=== PATIENT | male | born 1985 | race African-American/Black ===

== ENCOUNTER 2020-01-25 17:49 | Emergency (ER) | payer OTHER ==
[2020-01-25 17:58] VITALS: BP 120/65; PULSE 83; TEMP 98.3; BMI 21.2
--- NOTE | 2020-01-25 20:07 | PDOC ---
Documentation entered by Neida Ignacio SCRIBE, acting as scribe for Mane Degroot MD. Mane Degroot MD: This documentation has been prepared by the scribe, Neida Ignacio SCRIBE, under my direction and personally reviewed by me in its entirety. I confirm that the documentation accurately reflects all work, treatment, procedures, and medical decision making performed by me. History of Present Illness - General Chief Complaint: Chest Pain Stated Complaint: CHEST PAIN Time Seen by Provider: 01/25/20 19:30 History Source: Patient Exam Limitations: No Limitations - History of Present Illness Initial Comments: 01/25/20 19:32 Patient is a 34 year old male with no significant past medical history of chest pain. Pt notes he has had intermittent episodes of mid sternal, chest tighntess that seems worse when he is at work in the cold. The pain tends to last for hours and be related to being in a cold environement. He denies any exertional worsening of sypmtoms, fever/chills, cough, sob, guevara, n/v, diaphoresis, back pain, abd pain, leg swelling,hemoptysis. Pt notes that certain positions seems to worsen it such as when he bends over or when he is holding things with his arm. Social hx: denies etoh abuse, recreational drug use, smoking Family hx:denies any family history Past History - Medical History Allergies/Adverse Reactions: Allergies Allergy/AdvReac Type Severity Reaction Status Date / Time No Known Allergies Allergy Verified 01/25/20 17:53 - Psycho-Social/Smoking History Smoking History: Never smoked - Substance Abuse Hx (Audit-C & DAST Scrn) How often the patient has a drink containing alcohol: Never Score: In Men: 4 or > Positive; In Women: 3 or > Positive: 0 Screen Result (Pos requires Nsg. Audit-10AR): Negative Review of Systems - Review of Systems Able to Perform ROS?: Yes Comments:: 01/25/20 19:32 Constitutional - Pt denies Fever, Chills, weakness, HEENT: denies vision changes, sore throat Respiratory: Denies cough, sob, hemoptysis Cardiac: +chest pain, denies palpitations, light headedness, leg swelling Abd/GI: denies abd pain, nausea, vomiting, blood per rectum, melena, diarrhea : denies dysuria, frequency, discharge Musculskelatal - denies back pain, joint swelling skin - denies bruising, erythema, rash neurological: denies headache, numbness, focal weakness, tingling, ataxia, weakness hematologic: denies anemia, easy bruising, easy bleeding *Physical Exam - Vital Signs Last Vital Signs Temp Pulse Resp BP Pulse Ox 98.3 F 83 18 120/65 99 01/25/20 17:53 01/25/20 17:53 01/25/20 17:53 01/25/20 17:53 01/25/20 17:53 - Physical Exam 01/25/20 19:32 GENERAL: The patient is awake, alert, and fully oriented, Nontoxic - in no acute distress. HEAD: Normocephalic, atraumatic. EYES: extraocular movements intact, sclera anicteric, conjunctiva clear. ENT: Normal voice, Moist mucous membranes. NECK: Normal range of motion, supple without lymphadenopathy, JVD, or masses. LUNGS: Breath sounds equal, clear to auscultation bilaterally. No wheezes, no crackles, no rales. HEART: Regular rate and rhythm, normal S1 and S2 without murmur, rub or gallop. ABDOMEN: Soft, nontender, normoactive bowel sounds. No guarding, no rebound. No masses. EXTREMITIES: Normal range of motion, no edema. No clubbing or cyanosis. No cords, erythema, or tenderness. NEUROLOGICAL: No facial asymmetry, Normal speech, normal gait. PSYCH: Normal mood, normal affect. SKIN: Warm, Dry, normal turgor, no rashes or lesions noted. Heart Score/ECG Review - ECG Impressions Comment:: 01/25/20 20:01 Twelve-lead EKG was performed and reviewed by me. There is normal sinus rhythm with a normal rate. Rate of 79 The axis is normal. The intervals are normal. There is normal R wave progression There are no ST or T wave abnormalities. Impression: Normal twelve-lead EKG Medical Decision Making - Medical Decision Making 01/25/20 20:01 34-year-old gentleman no past medical history presenting with intermittent episodes of atraumatic chest tightness that is nonexertional without associated shortness of breath, diaphoresis, nausea, vomiting. On exam the patient is well-appearing, no distress, with an unremarkable physical exam. The pain does seem to be exacerbated with certain arm movements, however there is no focal tenderness to palpation. Based on the positional nature with certain movements I do suspect it is muscular. Will recommend supportive care will obtain cxr will refer to PMD and cardiology 01/25/20 20:59 chest appears negative on my read will ck COVID will dc with outpatient fu I discussed the physical exam findings, ancillary test results and final diagnoses with the patient. I answered all of the patient's questions. The patient was satisfied with the care received and felt comfortable with the discharge plan and treatment plan. The patient will call their primary care physician within 24 hours to arrange follow-up and will return to the Emergency Department with any new, persistent or worsening symptoms. Discharge - Discharge Information Problems reviewed: Yes Clinical Impression/Diagnosis: Chest pain Qualifiers: Chest pain type: unspecified Qualified Code(s): R07.9 - Chest pain, unspecified Condition: Stable Disposition: HOME - Admission No - Follow up/Referral Referrals: [facility] [place] [Provider Group] Justo Marcos MD [Staff Physician] - - Patient Discharge Instructions Patient Printed Discharge Instructions: DI for Atypical Chest Pain Additional Instructions: Return to the emergency department immediately with ANY new, persistent or worsening symptoms. You were swabbed for COVID19. We will notify you of the results. You MUST call and follow up with your doctor tomorrow for further evaluation of your symptoms. Results were discussed with you. Please make sure your doctor reviews the results of your emergency evaluation. Your Emergency Department visit is not complete without a follow up with your doctor. If you had any xrays during your visit, it was read preliminarily by myself, a Radiologist will review it and if there are any additional findings we will call you. - Post Discharge Activity
--- NOTE | 2020-01-26 12:42 | EKG ---
Test Reason : Blood Pressure : / mmHG Vent. Rate : 079 BPM Atrial Rate : 079 BPM P-R Int : 166 ms QRS Dur : 084 ms QT Int : 352 ms P-R-T Axes : 081 081 072 degrees QTc Int : 403 ms NORMAL SINUS RHYTHM WITH SINUS ARRHYTHMIA POSSIBLE LEFT ATRIAL ENLARGEMENT BORDERLINE ECG NO PREVIOUS ECGS AVAILABLE Confirmed by Juan Manuel Block ([id number]) on 01/26/2020 12:41:40 PM Referred By: Confirmed By:Juan Manuel Block
== END 2020-01-25 21:05 | disposition home or self-care (01) ==
LOC: JER 17:49 → JERFT 17:49 → JER 21:05
DX: R07.9 Chest pain, unspecified (principal)
CPT/HCPCS: 71046-TC-FY; 93005; 93010; 99285-25; U0003